=== PATIENT | male | born 1990 | race Caucasian/White ===

== ENCOUNTER 2017-04-09 16:30 | Emergency (ER) | payer BC ==
[~2017-04-09] VITALS: Ht 177.8 cm; Wt 81.6 kg
--- NOTE | ~2017-04-09 | CR142 ---
[facility] A Service of [facility] RADIOLOGY TEXT RESULTS PATIENT: ELLEN CAREY JR LOCATION: [facility] : [birth year] UNIT #: [id number] AGE: [address]: Fay Oliva APRN SEX: M ORDER DR: [id number] [facility] [address] [place], [place] [address] [id number] MR#: [id number] Acc #: [id number] NAME: ELLEN CAREY JR : 1990 SEX: M STUDY DATE/TIME: 04/09/2017 18:16 UNIT: TX ROOM: STUDY DESCRIPTION: CR Hand Min 3 Views Rt Attending Physician: Fay Oliva A.P.R.N. Ordering Physician: Ed Alex Velasquez M.D. Primary Care Physician: No Primary Care Physician MEDICAL IMAGING REPORT This report is preliminary unless electronic signature is present EXAM 3 views right hand DATE 04/09/2017 HISTORY 26-year-old male with right hand pain after injury tonight. COMPARISON None. FINDINGS There is an obliquely oriented fracture of the distal shaft of the third metacarpal with very mild posterior angulation of the fracture apex. No interarticular fracture extension is seen and there is no joint dislocation. Mild right hand soft tissue swelling is seen. Radiocarpal alignment is satisfactory. No retained radiopaque foreign body is seen. IMPRESSION 1. Mildly posteriorly angulated fracture of the distal shaft of the third metacarpal without articular involvement or joint dislocation. Dictated by... Diya Langley M.D. THIS IS AN ELECTRONICALLY VERIFIED REPORT Diya Langley M.D. at 04/11/2017 9:51 AM LL/sri TD: 04/10/2017 13:51 JOB #: [id number] [facility] A Service of [facility] RADIOLOGY TEXT RESULTS PATIENT: ELLEN CAREY JR LOCATION: [facility] : [birth year] UNIT #: [id number] AGE: [address]: Fay Oliva APRN SEX: M ORDER DR: MEDICAL IMAGING REPORT Page 1 of 1 COPY
[~2017-04-09 16:30] MED LIST: AMOXICILLIN PO; KEFLEX PO; NAPROSYN375 MG PO; NO MEDICATIONS; NORFLEX100 M1 PO; PEPTO-BISMOL262 M1 PO; PHENERGAN25 MG PO
== END 2017-04-09 19:39 | disposition home or self-care (01) ==
LOC: CED 16:30 → CFTX 16:30
DX: S62.632B Displaced fracture of distal phalanx of right middle finger, initial encounter for open fracture (principal); W22.8XXA Striking against or struck by other objects, initial encounter; Y92.89 Other specified places as the place of occurrence of the external cause; Z23 Encounter for immunization
CPT/HCPCS: 29125; 73130; 90471; 90715; 99283